=== PATIENT | male | born 1965 | race African-American/Black ===

== ENCOUNTER 2017-09-22 18:37 | Inpatient (IN) | payer OTHER ==
[~2017-09-22] VITALS: Ht 182.9 cm; Wt 226.7 kg
[~2017-09-22 18:37] MED LIST: ACET325 PO; AMLO5 PO; ASPI81CH PO; CARV25 PO; FURO20 PO; LISI20 PO; Norco 10-325 T1 EACH PO; Prednisone20 MG PO; Zofran Odt4 MG SL
[2017-09-22] MEDS ORDERED: AMLO5 PO (19:00)
[2017-09-22] MEDS ORDERED: SPIR25 (19:01)
[2017-09-22 19:32] LABS: PCO2 Arterial 42.4 mmHg (35-45); PO2 Arterial 73.9 mmHg (80-100); pH Blood Arterial 7.44 (7.35-7.45)
[2017-09-22 19:39] LABS: BASOPHILS ABSOLUTE AUTO 0.04 K/mm3 (0.00-0.23); BASOPHILS PERCENT AUTO 0 % (0-2); EOSINOPHILS ABSOLUTE AUTO 0.07 K/mm3 (0.00-0.68); EOSINOPHILS PERCENT AUTO 0 % (0-6); Hematocrit 37.2 % (37.0-53.0); Hemoglobin 11.8 g/dL (13.5-17.5); IMMATURE GRAN ABSOLUTE AUTO 0.28 K/mm3 (0.00-0.10); IMMATURE GRAN PERCENT AUTO 2 % (0-1); LYMPHOCYTES ABSOLUTE AUTO 0.88 K/mm3 (0.84-5.20); LYMPHOCYTES PERCENT AUTO 5 % (21-46); MONOCYTES ABSOLUTE AUTO 1.16 K/mm3 (0.16-1.47); MONOCYTES PERCENT AUTO 6 % (4-13); Mean Corpuscular HGB 26.1 pg (26.0-34.0); Mean Corpuscular HGB Conc 31.7 g/dL (31.5-36.5); Mean Corpuscular Volume 82 fL (80-100); Mean Platelet Volume 9.1 fL (9.1-12.4); NEUTROPHILS ABSOLUTE AUTO 16.55 K/mm3 (1.96-9.15); NEUTROPHILS PERCENT AUTO 87 % (41-73); Platelet Count 297 K/mm3 (150-400); RDW Coefficient Variation 15.7 % (11.7-14.2); RDW Standard Deviation 47.4 fL (35.1-46.3); Red Blood Cell Count 4.52 M/mm3 (4.30-5.90); White Blood Cell Count 18.98 K/mm3 (4.00-11.30)
[2017-09-22 19:50] LABS: Influenza A Negative (NEGATIVE); Influenza B Negative (NEGATIVE)
[2017-09-22 19:57] LABS: Alanine Aminotransfer (ALT/SGP 23 U/L (12-78); Albumin, Blood 2.8 g/dL (3.4-5.0); Albumin/Globulin Ratio 0.6 (0.8-1.8); Alk Phos 86 U/L (50-136); Anion Gap 7 mmol/L (6-16); Aspartate Aminotrans (AST/SGOT 18 U/L (12-37); Bilirubin, Total 0.8 mg/dL (0.1-1.0); Blood Urea Nitrogen 21 mg/dL (8-24); Bun/Creatinine Ratio 14.3 (12.0-20.0); CO2, Blood 27 mmol/L (21-32); Calcium, Blood 8.5 mg/dL (8.5-10.1); Chloride, Blood 97 mmol/L (98-108); Creatinine, Blood 1.47 mg/dL (0.60-1.20); Glomerular Filtration Rate 53 (60-); Glucose, Blood 105 mg/dL (70-99); Potassium, Blood 4.1 mmol/L (3.5-5.5); Sodium, Blood 131 mmol/L (136-145); Total Protein, Blood 7.8 g/dL (6.4-8.2); Troponin I <0.015 ng/mL (0.000-0.040)
[2017-09-23 05:24] LABS: BASOPHILS ABSOLUTE AUTO 0.06 K/mm3 (0.00-0.23); BASOPHILS PERCENT AUTO 0 % (0-2); EOSINOPHILS PERCENT AUTO 1 % (0-6); Hematocrit 35.6 % (37.0-53.0); Hemoglobin 11.3 g/dL (13.5-17.5); IMMATURE GRAN ABSOLUTE AUTO 0.21 K/mm3 (0.00-0.10); IMMATURE GRAN PERCENT AUTO 1 % (0-1); LYMPHOCYTES ABSOLUTE AUTO 1.15 K/mm3 (0.84-5.20); LYMPHOCYTES PERCENT AUTO 7 % (21-46); MONOCYTES ABSOLUTE AUTO 1.11 K/mm3 (0.16-1.47); MONOCYTES PERCENT AUTO 7 % (4-13); Mean Corpuscular HGB 26.2 pg (26.0-34.0); Mean Corpuscular HGB Conc 31.7 g/dL (31.5-36.5); Mean Corpuscular Volume 83 fL (80-100); Mean Platelet Volume 8.9 fL (9.1-12.4); NEUTROPHILS PERCENT AUTO 84 % (41-73); Platelet Count 284 K/mm3 (150-400); RDW Coefficient Variation 15.8 % (11.7-14.2); RDW Standard Deviation 47.7 fL (35.1-46.3); Red Blood Cell Count 4.31 M/mm3 (4.30-5.90); White Blood Cell Count 16.43 K/mm3 (4.00-11.30)
[2017-09-23 05:47] LABS: Albumin, Blood 2.7 g/dL (3.4-5.0); Albumin/Globulin Ratio 0.5 (0.8-1.8); Bilirubin, Total 0.4 mg/dL (0.1-1.0); Bun/Creatinine Ratio 15.3 (12.0-20.0); Calcium, Blood 8.4 mg/dL (8.5-10.1); Creatinine, Blood 1.37 mg/dL (0.60-1.20); Potassium, Blood 4.2 mmol/L (3.5-5.5); Total Protein, Blood 7.7 g/dL (6.4-8.2)
[2017-09-24 04:50] LABS: BASOPHILS ABSOLUTE AUTO 0.03 K/mm3 (0.00-0.23); BASOPHILS PERCENT AUTO 0 % (0-2); EOSINOPHILS ABSOLUTE AUTO 0.04 K/mm3 (0.00-0.68); EOSINOPHILS PERCENT AUTO 0 % (0-6); Hematocrit 36.6 % (37.0-53.0); Hemoglobin 11.6 g/dL (13.5-17.5); IMMATURE GRAN ABSOLUTE AUTO 0.16 K/mm3 (0.00-0.10); IMMATURE GRAN PERCENT AUTO 1 % (0-1); LYMPHOCYTES ABSOLUTE AUTO 0.78 K/mm3 (0.84-5.20); LYMPHOCYTES PERCENT AUTO 5 % (21-46); MONOCYTES ABSOLUTE AUTO 1.08 K/mm3 (0.16-1.47); MONOCYTES PERCENT AUTO 7 % (4-13); Mean Corpuscular HGB 26.4 pg (26.0-34.0); Mean Corpuscular HGB Conc 31.7 g/dL (31.5-36.5); Mean Corpuscular Volume 83 fL (80-100); Mean Platelet Volume 8.9 fL (9.1-12.4); NEUTROPHILS ABSOLUTE AUTO 12.73 K/mm3 (1.96-9.15); NEUTROPHILS PERCENT AUTO 86 % (41-73); Platelet Count 290 K/mm3 (150-400); RDW Coefficient Variation 15.7 % (11.7-14.2); RDW Standard Deviation 47.6 fL (35.1-46.3); White Blood Cell Count 14.82 K/mm3 (4.00-11.30)
[2017-09-24 05:07] LABS: Bun/Creatinine Ratio 15.3 (12.0-20.0); Calcium, Blood 8.5 mg/dL (8.5-10.1); Creatinine, Blood 1.5 mg/dL (0.60-1.20); Potassium, Blood 4.7 mmol/L (3.5-5.5)
[2017-09-24 12:06] LABS: Source, Urine Clean Catch
[2017-09-24 12:14] LABS: Bilirubin, Urine Neg (Neg); Blood, Urine Neg (Neg); Glucose Qualitative, Urine Neg (Neg); Ketones, Urine Neg (Neg); Leukocyte Esterase, Urine 1+ (Neg); Nitrite, Urine Neg (Neg); Protein, Urine Neg (Neg); Specific Gravity, Urine 1.005 (1.003-1.022); Urobilinogen, Urine NORM (Normal)
[2017-09-24 12:23] LABS: Appearance, Urine Clear (Clear); Bacteria Rare /hpf; Color, Urine Yellow (P-Yellow); Red Blood Cells, Urine Not Seen /hpf (0-2); Squamous Epithelial Cells Not Seen /hpf (Few)
[2017-09-24 22:17] LABS: PCO2 Arterial 38.5 mmHg (35-45); PO2 Arterial 57.8 mmHg (80-100); pH Blood Arterial 7.46 (7.35-7.45)
[2017-09-24 22:44] LABS: Albumin, Blood 2.7 g/dL (3.4-5.0); Anion Gap 6 mmol/L (6-16); Blood Urea Nitrogen 24 mg/dL (8-24); Bun/Creatinine Ratio 16.9 (12.0-20.0); CO2, Blood 28 mmol/L (21-32); Calcium, Blood 8.4 mg/dL (8.5-10.1); Chloride, Blood 99 mmol/L (98-108); Creatinine, Blood 1.42 mg/dL (0.60-1.20); Glomerular Filtration Rate 55 (60-); Glucose, Blood 116 mg/dL (70-99); Phosphorus, Blood 1.1 mg/dL (2.5-4.9); Potassium, Blood 4.7 mmol/L (3.5-5.5); Sodium, Blood 133 mmol/L (136-145)
[2017-09-25 04:45] LABS: Hematocrit 35.2 % (37.0-53.0); Mean Corpuscular HGB 25.9 pg (26.0-34.0); Mean Corpuscular HGB Conc 31.3 g/dL (31.5-36.5); Mean Corpuscular Volume 83 fL (80-100); Mean Platelet Volume 8.8 fL (9.1-12.4); Platelet Count 278 K/mm3 (150-400); RDW Coefficient Variation 15.9 % (11.7-14.2); Red Blood Cell Count 4.25 M/mm3 (4.30-5.90); White Blood Cell Count 23.24 K/mm3 (4.00-11.30)
[2017-09-25 05:17] LABS: Bun/Creatinine Ratio 14.4 (12.0-20.0); Calcium, Blood 8.5 mg/dL (8.5-10.1); Creatinine, Blood 1.81 mg/dL (0.60-1.20); Magnesium, Blood 2.6 mg/dL (1.6-2.4); Potassium, Blood 4.9 mmol/L (3.5-5.5)
[2017-09-25 07:02] LABS: BASOPHILS PERCENT MAN 0 % (0-2); EOSINOPHILS PERCENT MAN 0 % (0-6); TOTAL CELLS COUNTED 100
[2017-09-25 07:10] LABS: BAND PERCENT MAN 9 % (0-8); LYMPHOCYTES ABSOLUTE MAN 1.16 K/mm3 (0.84-5.20); LYMPHOCYTES PERCENT MAN 5 % (21-46); MONOCYTES ABSOLUTE MAN 0.69 K/mm3 (0.16-1.47); MONOCYTES PERCENT MAN 3 % (4-13); NEUTROPHILS ABSOLUTE MAN 21.38 K/mm3 (1.96-9.15); SEG NEUTROPHILS PERCENT MAN 83 % (41-73)
[2017-09-26 03:58] LABS: BASOPHILS ABSOLUTE AUTO 0.04 K/mm3 (0.00-0.23); BASOPHILS PERCENT AUTO 0 % (0-2); EOSINOPHILS ABSOLUTE AUTO 0.12 K/mm3 (0.00-0.68); EOSINOPHILS PERCENT AUTO 1 % (0-6); Hematocrit 35.7 % (37.0-53.0); Hemoglobin 10.7 g/dL (13.5-17.5); IMMATURE GRAN ABSOLUTE AUTO 0.11 K/mm3 (0.00-0.10); IMMATURE GRAN PERCENT AUTO 1 % (0-1); LYMPHOCYTES PERCENT AUTO 10 % (21-46); MONOCYTES ABSOLUTE AUTO 1.41 K/mm3 (0.16-1.47); MONOCYTES PERCENT AUTO 9 % (4-13); Mean Corpuscular HGB 25.7 pg (26.0-34.0); Mean Corpuscular Volume 86 fL (80-100); Mean Platelet Volume 9.2 fL (9.1-12.4); NEUTROPHILS ABSOLUTE AUTO 12.17 K/mm3 (1.96-9.15); NEUTROPHILS PERCENT AUTO 79 % (41-73); Platelet Count 250 K/mm3 (150-400); RDW Standard Deviation 49.8 fL (35.1-46.3); Red Blood Cell Count 4.16 M/mm3 (4.30-5.90); White Blood Cell Count 15.35 K/mm3 (4.00-11.30)
[2017-09-26 04:20] LABS: Anion Gap 6 mmol/L (6-16); Blood Urea Nitrogen 24 mg/dL (8-24); Bun/Creatinine Ratio 17.8 (12.0-20.0); CO2, Blood 31 mmol/L (21-32); Calcium, Blood 8.5 mg/dL (8.5-10.1); Chloride, Blood 99 mmol/L (98-108); Creatinine, Blood 1.35 mg/dL (0.60-1.20); Glomerular Filtration Rate 59 (60-); Glucose, Blood 100 mg/dL (70-99); Magnesium, Blood 2.9 mg/dL (1.6-2.4); Potassium, Blood 4.7 mmol/L (3.5-5.5); Sodium, Blood 136 mmol/L (136-145)
[2018-01-16] MEDS ORDERED: TORSE20 PO (14:40)
== END 2017-09-26 23:18 | disposition short-term general hospital (02) | DRG 871 ==
LOC: DELPENDDIS → ER 18:37 → MEDS 18:38 → ER 21:37 → MEDS 21:37 → ENPENDDIS 09-24 09:42 → PCU 09-24 23:07
PROVIDERS: Emergency Medicine; Family Medicine; Internal Medicine
PROC: 3E0234Z Introduction of Serum, Toxoid and Vaccine into Muscle, Percutaneous Approach (ICD-10-PCS; principal; 2017-09-22)
PROC: 5A09357 Assistance with Respiratory Ventilation, Less than 24 Consecutive Hours, Continuous Positive Airway Pressure (ICD-10-PCS; 2017-09-22)
DX: A41.51 Sepsis due to Escherichia coli [E. coli] (principal); J96.01 Acute respiratory failure with hypoxia; E66.2 Morbid (severe) obesity with alveolar hypoventilation; I13.0 Hypertensive heart and chronic kidney disease with heart failure and stage 1 through stage 4 chronic kidney disease, or unspecified chronic kidney disease; I50.32 Chronic diastolic (congestive) heart failure; Z68.44 Body mass index [BMI] 60.0-69.9, adult; N17.9 Acute kidney failure, unspecified; R65.20 Severe sepsis without septic shock; N18.3 Chronic kidney disease, stage 3 (moderate); Z23 Encounter for immunization; J40 Bronchitis, not specified as acute or chronic; Z99.89 Dependence on other enabling machines and devices; Z79.899 Other long term (current) drug therapy
CPT/HCPCS: 36415; 36600; 71045; 71046; 80048; 80053; 80069; 81001; 82803; 83605; 83735; 83880; 84145; 84484; 85025; 85379; 87040; 87070; 87077; 87086; 87106; 87186; 87205; 87449; 87804; 93005; 93010; 93306; 93970; 94640; 94660; 94667; 94762; 96365; 96366; 96372; 96374; 96375; 96376; 99285; G0008; G0103; G0378; J0456; J0696; J1650; J1956; J2543; J3370; J7030; J7050; Q2038

== ENCOUNTER 2018-01-21 07:08 | Day surgery (SDC) | payer OTHER ==
[~2018-01-21] VITALS: Ht 185.4 cm; Wt 233.2 kg
[~2018-01-21 07:08] MED LIST changes: +SPIR25; +TORSE20 PO
== END 2018-01-21 09:15 | disposition home or self-care (01) ==
LOC: ORSCMMR 07:08 → ORD 08:00 → ORSCMMR 08:15
PROVIDERS: Internal Medicine Gastroenterology
PROC: 0DBP8ZX Excision of Rectum, Via Natural or Artificial Opening Endoscopic, Diagnostic (ICD-10-PCS; principal; 2018-01-21 08:15)
PROC: 0DBM8ZX Excision of Descending Colon, Via Natural or Artificial Opening Endoscopic, Diagnostic (ICD-10-PCS; principal; 2018-01-21 08:15)
DX: Z12.11 Encounter for screening for malignant neoplasm of colon (principal); D12.4 Benign neoplasm of descending colon; K62.1 Rectal polyp; K57.30 Diverticulosis of large intestine without perforation or abscess without bleeding; I10 Essential (primary) hypertension; E66.01 Morbid (severe) obesity due to excess calories; Z68.44 Body mass index [BMI] 60.0-69.9, adult; G47.33 Obstructive sleep apnea (adult) (pediatric); Z79.899 Other long term (current) drug therapy
CPT/HCPCS: 88305; J2250; J7030

== ENCOUNTER 2019-01-14 04:51 | Emergency (ER) | payer OTHER ==
[~2019-01-14] VITALS: Ht 185.4 cm; Wt 226.8 kg
[2019-01-14] MEDS ORDERED: LOSARTAN POTASS25 MG PO (05:02)
== END 2019-01-14 07:09 | disposition home or self-care (01) ==
LOC: ER 04:51
DX: R51 Headache (principal); I11.0 Hypertensive heart disease with heart failure; I50.9 Heart failure, unspecified; E66.9 Obesity, unspecified; Z79.899 Other long term (current) drug therapy
CPT/HCPCS: 96361; 96374; 96375; 99284-25; J0780; J1100; J1200; J1885; J7030

== ENCOUNTER → 2019-08-08 | Outpatient (CLI) | payer MEDICARE, OTHER ==
[~2019-08-08] MED LIST changes: +LOSARTAN POTASS25 MG PO
[2019-08-11 13:12] LABS: Stool Occult Bld Immuno 1 Negative (NEGATIVE)
== END | disposition home or self-care (01) ==
LOC: LAB SHORT 15:00 → LAB 15:00
PROVIDERS: Nurse Practitioner Family
DX: Z12.11 Encounter for screening for malignant neoplasm of colon (principal)
CPT/HCPCS: G0328

== ENCOUNTER 2022-07-09 02:00 | Emergency (ER) | payer MEDICARE ==
[~2022-07-09] VITALS: Ht 185.4 cm; Wt 204.1 kg
[2022-07-09 02:44] LABS: BASOPHILS ABSOLUTE AUTO 0.04 K/mm3 (0.00-0.23); BASOPHILS PERCENT AUTO 1 % (0-2); EOSINOPHILS ABSOLUTE AUTO 0.18 K/mm3 (0.00-0.68); EOSINOPHILS PERCENT AUTO 2 % (0-6); Hematocrit 39.1 % (37.0-53.0); Hemoglobin 12.6 g/dL (13.5-17.5); IMMATURE GRAN PERCENT AUTO 1 % (0-1); LYMPHOCYTES ABSOLUTE AUTO 1.67 K/mm3 (0.84-5.20); LYMPHOCYTES PERCENT AUTO 20 % (21-46); MONOCYTES ABSOLUTE AUTO 0.58 K/mm3 (0.16-1.47); MONOCYTES PERCENT AUTO 7 % (4-13); Mean Corpuscular HGB 28.6 pg (26.0-34.0); Mean Corpuscular HGB Conc 32.2 g/dL (31.5-36.5); Mean Corpuscular Volume 89 fL (80-100); Mean Platelet Volume 9.4 fL (9.1-12.4); NEUTROPHILS PERCENT AUTO 70 % (41-73); Platelet Count 223 K/mm3 (150-400); RDW Coefficient Variation 14.7 % (11.7-14.2); White Blood Cell Count 8.47 K/mm3 (4.00-11.30)
[2022-07-09 03:19] LABS: Bun/Creatinine Ratio 16.1 (12.0-20.0); Calcium, Blood 8.3 mg/dL (8.5-10.1); Creatinine, Blood 1.55 mg/dL (0.60-1.20); Magnesium, Blood 2.2 mg/dL (1.6-2.4); Potassium, Blood 4.1 mmol/L (3.5-5.5)
[2022-07-09] MEDS ORDERED: Robaxin750 MG PO (05:15)
== END 2022-07-09 05:42 | disposition home or self-care (01) ==
LOC: ER 02:00
PROVIDERS: Emergency Medicine
DX: M62.830 Muscle spasm of back (principal); I11.0 Hypertensive heart disease with heart failure; I50.9 Heart failure, unspecified; E66.9 Obesity, unspecified; Z68.43 Body mass index [BMI] 50.0-59.9, adult; Z79.899 Other long term (current) drug therapy
CPT/HCPCS: 36415; 80048; 83735; 84484; 85025; A9270

== ENCOUNTER 2023-07-13 06:32 | Emergency (ER) | payer MEDICARE, OTHER ==
[~2023-07-13] VITALS: Ht 185.4 cm; Wt 204.1 kg
[~2023-07-13 06:32] MED LIST changes: +CARVEDILOL25 M9 PO; +HYDRA25 PO; +JARDIANCE25 MG PO; +Robaxin750 MG PO; +SOAANZ20 M3 PO
[2023-07-13] MEDS ORDERED: METO100ER (06:54)
[2023-07-13 09:37] VITALS: BP 248/145
[2023-07-13 09:38] LABS: BASOPHILS ABSOLUTE AUTO 0.04 K/mm3 (0.00-0.23); BASOPHILS PERCENT AUTO 0 % (0-2); EOSINOPHILS ABSOLUTE AUTO 0.06 K/mm3 (0.00-0.68); EOSINOPHILS PERCENT AUTO 1 % (0-6); Hematocrit 38.6 % (37.0-53.0); Hemoglobin 12.4 g/dL (13.5-17.5); IMMATURE GRAN ABSOLUTE AUTO 0.04 K/mm3 (0.00-0.10); IMMATURE GRAN PERCENT AUTO 0 % (0-1); LYMPHOCYTES ABSOLUTE AUTO 1.09 K/mm3 (0.84-5.20); LYMPHOCYTES PERCENT AUTO 10 % (21-46); MONOCYTES ABSOLUTE AUTO 0.87 K/mm3 (0.16-1.47); MONOCYTES PERCENT AUTO 8 % (4-13); Mean Corpuscular HGB Conc 32.1 g/dL (31.5-36.5); Mean Corpuscular Volume 90 fL (80-100); Mean Platelet Volume 9.1 fL (9.1-12.4); NEUTROPHILS ABSOLUTE AUTO 8.55 K/mm3 (1.96-9.15); NEUTROPHILS PERCENT AUTO 80 % (41-73); Platelet Count 220 K/mm3 (150-400); RDW Coefficient Variation 14.4 % (11.7-14.2); RDW Standard Deviation 47.5 fL (35.1-46.3); Red Blood Cell Count 4.28 M/mm3 (4.30-5.90); White Blood Cell Count 10.65 K/mm3 (4.00-11.30)
[2023-07-13 10:11] LABS: Albumin, Blood 3.1 g/dL (3.4-5.0); Albumin/Globulin Ratio 0.7 (0.8-1.8); Bilirubin, Total 0.4 mg/dL (0.1-1.0); Bun/Creatinine Ratio 22.2 (12.0-20.0); Calcium, Blood 8.5 mg/dL (8.5-10.1); Creatinine, Blood 1.35 mg/dL (0.60-1.20); Globulin, Blood 4.3 g/dL (2.2-4.0); Potassium, Blood 3.9 mmol/L (3.5-5.5); Total Protein, Blood 7.4 g/dL (6.4-8.2)
[2023-07-13] MEDS ORDERED: ONDA4ODT MM (12:08)
== END 2023-07-13 12:20 | disposition home or self-care (01) ==
LOC: ER 06:32
PROVIDERS: Student in an Organized Health Care Education/Training Program
DX: R04.0 Epistaxis (principal); I11.0 Hypertensive heart disease with heart failure; I50.9 Heart failure, unspecified; Z79.899 Other long term (current) drug therapy
CPT/HCPCS: 30903; 80053; 85025; 85730; 99284-25; A9270

== ENCOUNTER 2023-07-16 05:48 | Emergency (ER) | payer MEDICARE, OTHER ==
[~2023-07-16] VITALS: Ht 185.4 cm; Wt 215.5 kg
[~2023-07-16 05:48] MED LIST changes: +METO100ER; +ONDA4ODT MM
[2023-07-16 09:18] VITALS: BP 170/91
== END 2023-07-16 09:19 | disposition home or self-care (01) ==
LOC: ER 05:48
DX: R04.0 Epistaxis (principal); I13.0 Hypertensive heart and chronic kidney disease with heart failure and stage 1 through stage 4 chronic kidney disease, or unspecified chronic kidney disease; I50.9 Heart failure, unspecified; N18.9 Chronic kidney disease, unspecified; Z79.84 Long term (current) use of oral hypoglycemic drugs; Z79.899 Other long term (current) drug therapy
CPT/HCPCS: 30903; 99283-25; A9270

== ENCOUNTER 2025-04-23 11:28 | Inpatient (IN) | payer MEDICARE, MEDICAID ==
[2025-04-23] VITALS (33 sets, daily range): BP systolic 153–258; BP diastolic 73–168
[~2025-04-23] VITALS: Ht 185.4 cm; Wt 204.4 kg
[2025-04-23 12:20] LABS: BASOPHILS ABSOLUTE AUTO 0.04 K/mm3 (0.00-0.23); BASOPHILS PERCENT AUTO 1 % (0-2); EOSINOPHILS ABSOLUTE AUTO 0.06 K/mm3 (0.00-0.68); EOSINOPHILS PERCENT AUTO 1 % (0-6); Hematocrit 44.8 % (37.0-53.0); Hemoglobin 14.4 g/dL (13.5-17.5); IMMATURE GRAN ABSOLUTE AUTO 0.05 K/mm3 (0.00-0.10); IMMATURE GRAN PERCENT AUTO 1 % (0-1); LYMPHOCYTES ABSOLUTE AUTO 0.94 K/mm3 (0.84-5.20); LYMPHOCYTES PERCENT AUTO 11 % (21-46); MONOCYTES ABSOLUTE AUTO 0.65 K/mm3 (0.16-1.47); MONOCYTES PERCENT AUTO 7 % (4-13); Mean Corpuscular HGB Conc 32.1 g/dL (31.5-36.5); Mean Corpuscular Volume 90 fL (80-100); NEUTROPHILS ABSOLUTE AUTO 7.07 K/mm3 (1.96-9.15); NEUTROPHILS PERCENT AUTO 80 % (41-73); NRBC ABSOLUTE 0.00 K/mm3 (0.00-0.02); NRBC Auto 0.0 /100 WBC (0.0-0.2); Platelet Count 202 K/mm3 (150-400); RDW Coefficient Variation 15.4 % (11.7-14.2); RDW Standard Deviation 50.9 fL (35.1-46.3)
[2025-04-23 12:41] LABS: Influenza A, PCR NEGATIVE (NEGATIVE); Influenza B, PCR NEGATIVE (NEGATIVE); Resp Syncytial Virus, PCR NEGATIVE (NEGATIVE); SARS-Cov-2 (COVID-19) PCR, MMC NEGATIVE (NEGATIVE)
[2025-04-23 12:44] LABS: Alanine Aminotransfer (ALT/SGP 23.0 U/L (12-78); Albumin, Blood 3.7 g/dL (3.4-5.0); Albumin/Globulin Ratio 0.8 (0.8-1.8); Anion Gap 8.0 mmol/L (3-11); Aspartate Aminotrans (AST/SGOT 18.0 U/L (12-37); Bilirubin, Total 0.6 mg/dL (0.1-1.0); Blood Urea Nitrogen 21.0 mg/dL (8-24); CO2, Blood 27.0 mmol/L (21-32); Calcium, Blood 8.8 mg/dL (8.5-10.1); Chloride, Blood 105.0 mmol/L (98-108); Creatinine, Blood 1.49 mg/dL (0.60-1.20); Globulin, Blood 4.6 g/dL (2.2-4.0); Glucose, Blood 134.0 mg/dL (70-99); Magnesium, Blood 2.1 mg/dL (1.6-2.4); Potassium, Blood 3.7 mmol/L (3.5-5.5); Sodium, Blood 136.0 mmol/L (136-145); Total Protein, Blood 8.3 g/dL (6.4-8.2)
[2025-04-23] MEDS ORDERED: HydrALAZINE HCl 20 MG / ML 1ML Vial IV ONE (13:05)
[2025-04-23] MEDS ORDERED: FLU VACC TS2025-26(6MOS UP)/PF 45 MCG/0.5 ML SYRINGE IM SCH (14:30)
--- NOTE | 2025-04-23 16:38 | NUR ---
ADMIT PT ARRIVED TO ICU 14 VIA ER BED AT 1520. PT IS AWAKE, ALERT, AND ORIENTED. PT STOOD UP TO TRANSFER TO ICU BED WITH ASSISTANCE. PT DENIES PAIN OR DISCOMFORT. SPO2 >96% ON ROOM AIR, BUT PT REPORTS SOB AT REST. PT INTOLERANT OF HOB LESS THAN 45 DEGREES. PT WITH NITRO GTT INFUSING AT 40 MCG/MIN UPON ARRIVAL. SBP >220'S. NO FAMILY AT BEDSIDE. WILL CONTINUE TO MONITOR.
[2025-04-23] MEDS ORDERED: METO100ER PO (17:11)
[2025-04-23] MEDS ORDERED: HydrALAZINE HCl 20 MG / ML 1ML Vial IV PRN (17:30)
--- NOTE | 2025-04-23 18:39 | NUR ---
SHIFT SUMMARY NO ACUTE CHANGES. PT REMAINS ALERT AND ORIENTED. DENIES PAIN OR DISCOMFORT. SOB IMPROVING THIS EVENING. PT REMAINS HYPERTENSIVE. NITRO GTT INFUSING AT 200 MCG/MIN. PT TOLERATING PO INTAKE WELL. WILL CONTINUE TO MONITOR AND REPORT OFF TO ONCOMING RN.
--- NOTE | 2025-04-23 21:19 | NUR ---
ASSUMPTION OF CARE: ASSUMED CARE AT START OF SHIFT (1899). REPORT RECEIVED FROM DAY SHIFT RN. PT IS DOING WELL AND RESTING IN BED. PT IS ALERT AND FOLLOWING COMMANDS. PT STATES THAT THEY HAVE A SLIGHT HEADACHE AND SOB BUT NO SP AT THIS TIME. LUNG SOUNDS ARE CLEAR AND EQUAL BILATERALLY. ON RA WITH SPO2 >95%. PT IS ON NOTROGLYCERINE GTT PER EMR ORDERS. HYPERTENSIVE WITH SBP: 150-180'S MAP >100 HR: 80-90'S. IV: PERIPHERAL IN RAC AND R FOREARM. PT IS ABLE TO STAND AND USE URINAL VIA 1-PERSON ASSIST. LINES AND CORDS PLACED OUT OF REACH. CALL LIGHT PLACED WITHIN REACH. WILL CONTINUE TO MONITOR.
[2025-04-24] VITALS (93 sets, daily range): BP systolic 115–215; BP diastolic 67–155
[2025-04-24] MEDS ORDERED: FentaNYL Citrate 50 MCG/ML 2 ML Injection IV PRN (00:20)
[2025-04-24 04:12] LABS: BASOPHILS ABSOLUTE AUTO 0.03 K/mm3 (0.00-0.23); BASOPHILS PERCENT AUTO 0 % (0-2); EOSINOPHILS ABSOLUTE AUTO 0.06 K/mm3 (0.00-0.68); EOSINOPHILS PERCENT AUTO 1 % (0-6); Hematocrit 37.7 % (37.0-53.0); Hemoglobin 12.1 g/dL (13.5-17.5); IMMATURE GRAN ABSOLUTE AUTO 0.03 K/mm3 (0.00-0.10); IMMATURE GRAN PERCENT AUTO 0 % (0-1); LYMPHOCYTES ABSOLUTE AUTO 0.84 K/mm3 (0.84-5.20); LYMPHOCYTES PERCENT AUTO 10 % (21-46); MONOCYTES ABSOLUTE AUTO 0.99 K/mm3 (0.16-1.47); MONOCYTES PERCENT AUTO 11 % (4-13); Mean Corpuscular HGB Conc 32.1 g/dL (31.5-36.5); Mean Corpuscular Volume 90 fL (80-100); NEUTROPHILS ABSOLUTE AUTO 6.83 K/mm3 (1.96-9.15); NEUTROPHILS PERCENT AUTO 78 % (41-73); NRBC ABSOLUTE 0.00 K/mm3 (0.00-0.02); NRBC Auto 0.0 /100 WBC (0.0-0.2); Platelet Count 188 K/mm3 (150-400); RDW Coefficient Variation 15.5 % (11.7-14.2); RDW Standard Deviation 51.3 fL (35.1-46.3)
[2025-04-24 05:06] LABS: Alanine Aminotransfer (ALT/SGP 19.0 U/L (12-78); Albumin, Blood 3.3 g/dL (3.4-5.0); Albumin/Globulin Ratio 0.9 (0.8-1.8); Anion Gap 7.0 mmol/L (3-11); Aspartate Aminotrans (AST/SGOT 13.0 U/L (12-37); Bilirubin, Total 1.0 mg/dL (0.1-1.0); Blood Urea Nitrogen 23.0 mg/dL (8-24); CO2, Blood 28.0 mmol/L (21-32); Calcium, Blood 8.9 mg/dL (8.5-10.1); Chloride, Blood 104.0 mmol/L (98-108); Creatinine, Blood 1.95 mg/dL (0.60-1.20); Globulin, Blood 3.6 g/dL (2.2-4.0); Glucose, Blood 113.0 mg/dL (70-99); Potassium, Blood 3.5 mmol/L (3.5-5.5); Sodium, Blood 135.0 mmol/L (136-145); Total Protein, Blood 6.9 g/dL (6.4-8.2)
--- NOTE | 2025-04-24 06:01 | NUR ---
SHIFT SUMMARY: PT IS DOING WELL AND RESTING IN A CHAIR. PT WAS ABLE TO SLEEP FOR A COUPLE HOURS DURING THE NIGHT UNTIL THEY BECAME TOO UNCOMFORTABLE SITTING IN BED. PT MOVED TO CHAIR AND STATED THAT THEY FELT BETTER IN THE CHAIR. PT STATES THAT THEY CONTINUE TO FEEL SOB AND IT WORSENS UPON EXERTION. SPO2 >95% ON RA. PT REMAINS HYPERTENSIVE, STILL ON NITROGLYCERIN GTT PER EMR ORDERS. SBP: 140-200'S MAP >100 HR: 80'S. PT IS ABLE TO USE TOILET VIA 1-PERSON ASSIST. LINES AND CORDS PLACED OUT OF REACH. CALL LIGHT PLACED WITHIN REACH. DR. ROME WAS CONTACTED DURING THE NIGHT, REGARDING PT'S BP. BP MEDS GIVEN PER EMR ODERS, WHICH HELPED IMPROVE BLOOD PRESSURE BRIEFLY.
--- NOTE | 2025-04-24 07:00 | NUR ---
ASSUMPTION OF CARE PT RECEIVING NITRO 200MCG/MIN. PT IS ALERT AND ORIENTED, PARTICIPATES IN CONVERSATION AND CARE ABLE. PT HAS 8/10 HEADACHE AND REQUESTS TYLENOL WHICH HAS PREVIOUSLY HELPED ALLEVIATE SYMPTOMS. PT REQUESTS HELP FROM CHAIR TO BED, STANDBY ASSIST. PT BECOMES DYSPNEIC DURING TRANSFER, SPO2 >92%. PT REPORTS AT BASELINE BECOMING DYSPNEIC WITH EXERTION AND ORTHOPNEA. DENIES CHEST PAIN/DISCOMFORT. SINUS WITH PVCS ON MONITOR. RATE IN 80S. BP CHECKED ON BILAT UPPER EXTREMITIES AND NUMBERS CORRELATE. LLE MORE EDEMATOUS THAN RLE. BED IN LOW POSITION, CALL LIGHT WITHIN REACH.
[2025-04-24] MEDS ORDERED: NS 1,000 ML IV SCH (08:00)
[2025-04-24] MEDS ORDERED: Enoxaparin 40 MG/0.4 ML SYR SC SCH (09:00)
--- NOTE | 2025-04-24 17:29 | NUR ---
PE STUDY COMPLETED
--- NOTE | 2025-04-24 18:54 | NUR ---
SHIFT SUMMARY PT RECEIVING NITRO 40MCG/MIN WITH GOAL OF SBP <180. HE HAS HAD A HEADACHE THROUGHOUT THE DAY AND MEDICATED PER EMAR. NO CP THROUGHOUT THE DAY. HE REMAINS ON RA. HE BECOMES DYSPNEIC WITH EXERTION AND REPORTS IT FEELS LIKE HIS BASELINE. PT SAT IN THE RECLINER FOR MOST OF THE DAY. PT ABLE TO AMBULATE FROM CHAIR TO TOILET. PE STUDY COMPLETED THIS SHIFT. PT CURRENTLY RESTING IN RECLINER. CALL LIGHT WITHIN REACH.
--- NOTE | 2025-04-24 20:15 | NUR ---
ASSUMPTION OF CARE: ASSUMED CARE AT START OF SHIFT (1899). REPORT RECEIVED FROM DAY SHIFT RN. PT IS DOING WELL AND RESTING IN CHAIR. PT IS ALERT AND FOLLOWING COMMANDS. PT STATES HAVING 3/10 HEADACHE BUT NO CP OR SOB AT THIS TIME. LUNG SOUNDS ARE CLEAR AND EQUAL BUT DIMINISHED IN THE BASES BILATERALLY. ON RA WITH SPO2 >94%. SINUS RYTHM WITH SBP: 150-180'S MAP >100 HR: 70-80'S. ON NITROGLYCERIN GTT PER EMR ORDERS. IV: PERIPHERAL IN LAC AND L FORERARM. PT IS ABLE TO STAND AND WALK TO TOILET VIA 1-PERSON ASSIST. LINES AND CORDS PLACED OUT OF REACH. CALL LIGHT PLACED WITHIN REACH.
[2025-04-25] VITALS (35 sets, daily range): BP systolic 139–182; BP diastolic 76–156
[2025-04-25 03:28] LABS: BASOPHILS ABSOLUTE AUTO 0.04 K/mm3 (0.00-0.23); BASOPHILS PERCENT AUTO 1 % (0-2); EOSINOPHILS ABSOLUTE AUTO 0.14 K/mm3 (0.00-0.68); EOSINOPHILS PERCENT AUTO 2 % (0-6); Hematocrit 38.4 % (37.0-53.0); Hemoglobin 12.3 g/dL (13.5-17.5); IMMATURE GRAN ABSOLUTE AUTO 0.04 K/mm3 (0.00-0.10); IMMATURE GRAN PERCENT AUTO 1 % (0-1); LYMPHOCYTES ABSOLUTE AUTO 1.12 K/mm3 (0.84-5.20); LYMPHOCYTES PERCENT AUTO 14 % (21-46); MONOCYTES ABSOLUTE AUTO 0.87 K/mm3 (0.16-1.47); MONOCYTES PERCENT AUTO 11 % (4-13); Mean Corpuscular HGB Conc 32.0 g/dL (31.5-36.5); Mean Corpuscular Volume 89 fL (80-100); NEUTROPHILS ABSOLUTE AUTO 6.07 K/mm3 (1.96-9.15); NEUTROPHILS PERCENT AUTO 73 % (41-73); NRBC ABSOLUTE 0.00 K/mm3 (0.00-0.02); NRBC Auto 0.0 /100 WBC (0.0-0.2); Platelet Count 182 K/mm3 (150-400); RDW Coefficient Variation 15.7 % (11.7-14.2); RDW Standard Deviation 51.2 fL (35.1-46.3)
[2025-04-25 03:51] LABS: Alanine Aminotransfer (ALT/SGP 17.0 U/L (12-78); Albumin, Blood 3.3 g/dL (3.4-5.0); Albumin/Globulin Ratio 0.8 (0.8-1.8); Anion Gap 8.0 mmol/L (3-11); Aspartate Aminotrans (AST/SGOT 13.0 U/L (12-37); Bilirubin, Total 0.8 mg/dL (0.1-1.0); Blood Urea Nitrogen 24.0 mg/dL (8-24); CO2, Blood 28.0 mmol/L (21-32); Calcium, Blood 8.9 mg/dL (8.5-10.1); Chloride, Blood 102.0 mmol/L (98-108); Creatinine, Blood 2.04 mg/dL (0.60-1.20); Globulin, Blood 4.0 g/dL (2.2-4.0); Glucose, Blood 101.0 mg/dL (70-99); Potassium, Blood 3.6 mmol/L (3.5-5.5); Sodium, Blood 134.0 mmol/L (136-145); Total Protein, Blood 7.3 g/dL (6.4-8.2)
--- NOTE | 2025-04-25 06:29 | NUR ---
SHIFT SUMMARY: PT IS DOING WELL AND RESTING IN CHAIR. THEY WERE ABLE TO SLEEP MOST OF THE NIGHT. NO ACUTE CHANGES DURING THE SHIFT. PT STILL HYPERTENSIVE AND NITROGLYERCINE GTT HAS BEEN TITRATED PER EMR ORDERS. VITAL SIGNS HAVE BEEN STABLE. PT IS ABLE TO STAND AND WALK TO TOILET VIA 1-PERSON ASSIST. LINES AND CORDS PLACED OUT OF REACH. CALL LIGHT PLACED WITHIN REACH.
--- NOTE | 2025-04-25 07:00 | NUR ---
ASSUMPTION OF CARE PT RECEIVING NITRO 20MCG/MIN. HE IS ALERT AND ORIENTED. ON RA WITH SPO2 >93%. PT IS IN SINUS WITH RUNS OF BIGEMINY. PROVIDER NOTIFIED AND ORDER RECEIVED FOR LABS. PT ASYMPTOMPATIC DURING THESE RUNS. PT CURRENTLY SITTING IN RECLINER. CALL LIGHT WITHIN REACH.
[2025-04-25] MEDS ORDERED: Polyethylene Glycol 3350 17 gm PO PRN (09:00)
[2025-04-25] MEDS ORDERED: TORSE20 PO (14:11)
[2025-04-25] MEDS ORDERED: Acetaminophen650 M1 PO (14:12)
[2025-04-25] MEDS ORDERED: CATAPRES0.1 MG PO (14:13)
[2025-04-25] MEDS ORDERED: MIRALAX17 GM PO (14:14)
[2025-04-25] MEDS ORDERED: MELATONIN5 M1 PO (14:14)
--- NOTE | 2025-04-25 14:54 | NUR ---
PT PROVIDED DISCHARGE INSTRUCTIONS AND EDUCATION. PT VERBALIZED UNDERSTANDING. PRESCRIPTIONS FAXED TO [facility]. HEAD CUSTODIAN VERIFIED RECEIVING PRESCRIPTIONS. ALL BELONGINGS PACKED WITH PT. PT DRESSED SELF AND PROVIDED WHEELCHAIR RIDE TO VEHICLE. PT'S TO TRANSPORT PT HOME. LEFT DEPARTMENT AT 1445
[2025-04-26] MEDS ORDERED: Torsemide 20 MG TAB PO SCH (08:00)
== END 2025-04-25 14:45 | disposition home or self-care (01) | DRG 291 ==
LOC: ER 11:28 → ICUE 14:24
PROVIDERS: Registered Nurse; Student in an Organized Health Care Education/Training Program; ADMIT Internal Medicine
DX: I13.0 Hypertensive heart and chronic kidney disease with heart failure and stage 1 through stage 4 chronic kidney disease, or unspecified chronic kidney disease (principal); I50.33 Acute on chronic diastolic (congestive) heart failure; I16.1 Hypertensive emergency; Z68.44 Body mass index [BMI] 60.0-69.9, adult; N17.9 Acute kidney failure, unspecified; Z66 Do not resuscitate; G47.33 Obstructive sleep apnea (adult) (pediatric); F12.90 Cannabis use, unspecified, uncomplicated; I1A.0 Resistant hypertension; E66.01 Morbid (severe) obesity due to excess calories; R51.9 Headache, unspecified; I77.819 Aortic ectasia, unspecified site; N18.32 Chronic kidney disease, stage 3b; I49.3 Ventricular premature depolarization; I45.81 Long QT syndrome; Z99.81 Dependence on supplemental oxygen; Z79.899 Other long term (current) drug therapy; Z98.890 Other specified postprocedural states
CPT/HCPCS: 36415; 71045; 71260; 80053; 83735; 83880; 84484; 85025; 85379; 87637; 93005; 93010; 94762; 96365; 96375; 99291-25; A9270; C8929; J0360; J1650; J1938; J3010; Q9957; Q9967